=== PATIENT | female | born 1990 | race Caucasian/White ===

== ENCOUNTER 2018-12-31 12:49 | Observation (INO) | payer MEDICAID ==
[2018-12-31] MEDS ORDERED: Ketorolac 15 MG/ML SDV IVPUSH ONE (13:04)
[2018-12-31] MEDS ORDERED: HYDROmorphone 1 MG/ML Syringe IVPUSH ONE ×2 (13:04→15:21)
[2018-12-31] MEDS ORDERED: Ondansetron 4 MG/2 ML SDV IVPUSH ONE (13:04)
[2018-12-31 13:45] LABS: CHLORIDE,CL 105 mmol/L (54-184); SODIUM,NA 142 mmol/L (69-191)
[2018-12-31 13:48] LABS: ANION GAP 14.7 mmol/L (10-20)
--- NOTE | 2018-12-31 13:51 | EDM.PDOC ---
ED HPI GENERAL MEDICAL PROBLEM - General Chief Complaint: Abdominal Pain Stated Complaint: PAIN IN ABDOMINAL AREA RIGHT SIDE Time Seen by Provider: 12/31/18 12:55 Source of Information: Reports: Patient History Limitations: Reports: No Limitations - History of Present Illness INITIAL COMMENTS - FREE TEXT/NARRATIVE: Pt. presents to ER with complaints of RUQ abdominal pain. Pt. states that the discomfort has been intermittently happening for the past several weeks. She notices a postprandial pattern of symptoms of sharp pain shortly after eating fatty food. She states that she ate fajitas today shortly before onset of symptoms. Denies rick colored stool or dark urine. No fever or chills. She states that she is nauseated with the discomfort starts. She denies any fever or chills. States that the discomfort is located just below the R lower ribs. She states that the discomfort is worse with palpation but not worse with movement or deep breathing. Onset: Today Location: Reports: Abdomen Quality: Reports: Ache, Sharp, Stabbing Severity: Severe Associated Symptoms: Reports: Diaphoresis, Nausea/Vomiting Right Upper Abdomen Pain Score (Numeric/FACES): 8 - Related Data Allergies Allergy/AdvReac Type Severity Reaction Status Date / Time bupropion [From Wellbutrin] Allergy Other Verified 12/31/18 13:38 Home Meds: Home Meds Dextroamphetamine/Amphetamine [Adderall 20 mg Tablet] 20 mg PO DAILY 12/31/18 [ History] Escitalopram [Lexapro] 20 mg PO DAILY 12/31/18 [History] Past Medical History Psychiatric History: Reports: ADHD, Depression Social & Family History - Tobacco Use Smoking Status *Q: Current Every Day Smoker Years of Tobacco use: 10 Packs/Tins Daily: 0.2 ED ROS GENERAL - Review of Systems Review Of Systems: See Below Constitutional: Reports: No Symptoms HEENT: Reports: No Symptoms Respiratory: Reports: No Symptoms Cardiovascular: Reports: No Symptoms Endocrine: Reports: No Symptoms GI/Abdominal: Reports: Abdominal Pain, Nausea. Denies: Black Stool, Bloody Stool, Constipation, Diarrhea, Distension, Flatus, Hematemesis, Hematochezia, Melena, Mucous in Stool, Vomiting : Reports: No Symptoms Musculoskeletal: Reports: No Symptoms Skin: Reports: No Symptoms Neurological: Reports: No Symptoms Psychiatric: Reports: No Symptoms Hematologic/Lymphatic: Reports: No Symptoms Immunologic: Reports: No Symptoms ED EXAM, GENERAL - Physical Exam Exam: See Below Exam Limited By: No Limitations General Appearance: Alert, WD/WN, Moderate Distress Throat/Mouth: Normal Inspection, Normal Lips, Normal Teeth, Normal Gums, Normal Oropharynx, Normal Voice, No Airway Compromise Head: Atraumatic, Normocephalic Neck: Normal Inspection, Supple, Non-Tender, Full Range of Motion Respiratory/Chest: No Respiratory Distress, Lungs Clear, Normal Breath Sounds, No Accessory Muscle Use, Chest Non-Tender Cardiovascular: Normal Peripheral Pulses, Regular Rate, Rhythm, No Edema, No Gallop, No JVD, No Murmur, No Rub Peripheral Pulses: 4+: Radial (R) GI/Abdominal: Normal Bowel Sounds, Soft, No Organomegaly, No Distention, No Abnormal Bruit, No Mass, Pelvis Stable, Guarding, Tender (Female) Exam: Deferred Rectal (Female) Exam: Deferred Back Exam: Normal Inspection, Full Range of Motion Extremities: Normal Inspection, Normal Range of Motion, Non-Tender, No Pedal Edema, Normal Capillary Refill Neurological: Alert, Oriented, CN II-XII Intact, Normal Cognition, Normal Gait, Normal Reflexes, No Motor/Sensory Deficits Psychiatric: Normal Affect, Normal Mood Skin Exam: Warm, Dry, Intact, Normal Color, No Rash Course - Vital Signs Last Recorded V/S: Last Vital Signs Temp 36.8 C 12/31/18 12:55 Pulse 94 12/31/18 12:55 Resp 20 12/31/18 12:55 BP 139/88 12/31/18 12:55 Pulse Ox 98 12/31/18 12:55 - Orders/Labs/Meds Orders: Active Orders 24 hr Category Date Time Status Patient Status [ADT] Routine ADT 12/31/18 15:20 Ordered ETOH [ETHANOL BLOOD MEDICAL] [CHEM] Stat Lab 12/31/18 15:09 Ordered GGT [REF] Stat Lab 12/31/18 15:10 Ordered LACTATE DEHYDROGENASE,LDH [CHEM] Stat Lab 12/31/18 15:08 Ordered LIPID PANEL [CHEM] Stat Lab 12/31/18 15:08 Ordered Sodium Chloride 0.9% [Normal Saline] 1,000 ml Med 12/31/18 13:59 Ordered IV .BOLUS Sodium Chloride 0.9% [Saline Flush] Med 12/31/18 13:03 Active 10 ml FLUSH ASDIRECTED PRN Peripheral IV Insertion Adult [OM.PC] Routine Oth 12/31/18 13:04 Ordered Medication Orders Sodium Chloride (Normal Saline) 1,000 mls @ 500 mls/hr IV .BOLUS ONE Stop: 12/31/18 15:58 Last Admin: 12/31/18 14:59 Dose: 500 mls/hr Sodium Chloride (Saline Flush) 10 ml FLUSH ASDIRECTED PRN PRN Reason: Keep Vein Open Labs: Laboratory Tests 12/31/18 12/31/18 12/31/18 Range/Units 13:15 13:15 13:15 WBC 8.4 (4.0-10.0) x10^3/uL RBC 4.55 (4.00-5.50) x10^6/uL Hgb 13.7 (12.0-16.0) g/dL Hct 40.2 (33.0-47.0) % MCV 88.4 (78.0-93.0) fL MCH 30.1 (26.0-32.0) pg MCHC 34.1 (32.0-36.0) g/dL RDW Coeff of Mitra 13.6 (10.0-15.0) % Plt Count 254 (130-400) x10^3/uL Neut % (Auto) 72.6 (50.0-80.0) % Lymph % (Auto) 19.8 L (25.0-50.0) % [place] % (Auto) 6.6 (2.0-11.0) % Eos % (Auto) 0.6 (0.0-4.0) % Baso % (Auto) 0.4 (0.2-1.2) % PT 10.2 (10.0-12.8) SEC INR 0.9 L (2.0-3.5) Sodium 142 (69-191) mmol/L Potassium 3.7 (1.5-9.9) mmol/L Chloride 105 (54-184) mmol/L Carbon Dioxide 26 (21-32) mmol/L Anion Gap 14.7 (10-20) mmol/L BUN 14 (7-18) mg/dL Creatinine 0.9 (0.55-1.02) mg/dL Est Cr Clr Drug Dosing TNP Estimated GFR (MDRD) > 60 Glucose 97 (74-106) mg/dL Calcium 9.1 (8.5-10.1) mg/dL Corrected Calcium 9.34 (8.5-10.1) mg/dL Total Bilirubin 0.4 (0.2-1.0) mg/dL AST 14 L (15-37) U/L ALT 21 (14-59) U/L Alkaline Phosphatase 61 (46-116) U/L C-Reactive Protein < 0.2 (<=0.9) mg/dL Total Protein 6.9 (6.4-8.2) g/dL Albumin 3.7 (3.4-5.0) g/dL Globulin 3.2 Albumin/Globulin Ratio 1.16 Amylase 122 H (25-115) U/L Lipase 1100 H (73-393) U/L Meds: Medications Generic Name Dose Route Start Last Admin Trade Name Freq PRN Reason Stop Dose Admin Sodium Chloride 1,000 mls @ 500 mls/hr 12/31/18 13:59 12/31/18 14:59 Normal Saline IV 12/31/18 15:58 500 mls/hr .BOLUS ONE Administration Sodium Chloride 10 ml 12/31/18 13:03 Saline Flush FLUSH ASDIRECTED PRN Keep Vein Open Discontinued Medications Generic Name Dose Route Start Last Admin Trade Name Freq PRN Reason Stop Dose Admin Hydromorphone HCl 1 mg 12/31/18 13:04 12/31/18 13:26 Dilaudid IVPUSH 12/31/18 13:05 1 mg ONETIME ONE Administration Hydromorphone HCl 1 mg 12/31/18 15:21 Dilaudid IVPUSH 12/31/18 15:22 ONETIME ONE Iopamidol 100 ml 12/31/18 14:07 12/31/18 14:24 Isovue-300 (61%) IVPUSH 12/31/18 14:08 100 ml ONETIME ONE Administration Ketorolac Tromethamine 15 mg 12/31/18 13:04 12/31/18 13:25 Toradol IVPUSH 12/31/18 13:05 15 mg ONETIME ONE Administration Ondansetron HCl 4 mg 12/31/18 13:04 12/31/18 13:22 Zofran IVPUSH 12/31/18 13:05 4 mg ONETIME ONE Administration - Radiology Interpretation Free Text/Narrative:: CT abdomen and pelvis with contrast obtained. No obvious pancreatitis signs noted. Gallbladder is non-distended. No abscess or inflammatory changes noted. Departure - Departure Time of Disposition: 15:23 Disposition: Refer to Observation Clinical Impression: Pancreatitis - Discharge Information Referrals: Maegan Lawler MD [Primary Care Provider] - Forms: ED Department Discharge - Problem List Review Problem List Initiated/Reviewed/Updated: Yes - My Orders Last 24 Hours: My Active Orders 12/31/18 13:03 Sodium Chloride 0.9% [Saline Flush] 10 ml FLUSH ASDIRECTED PRN 12/31/18 13:04 Peripheral IV Insertion Adult [OM.PC] Routine 12/31/18 13:59 Sodium Chloride 0.9% [Normal Saline] 1,000 ml IV .BOLUS 12/31/18 15:08 LACTATE DEHYDROGENASE,LDH [CHEM] Stat LIPID PANEL [CHEM] Stat 12/31/18 15:09 ETOH [ETHANOL BLOOD MEDICAL] [CHEM] Stat 12/31/18 15:10 GGT [REF] Stat 12/31/18 15:20 Patient Status [ADT] Routine - Assessment/Plan Admission H&P: Please use this note as an admission H&P Last 24 Hours: My Active Orders 12/31/18 13:03 Sodium Chloride 0.9% [Saline Flush] 10 ml FLUSH ASDIRECTED PRN 12/31/18 13:04 Peripheral IV Insertion Adult [OM.PC] Routine 12/31/18 13:59 Sodium Chloride 0.9% [Normal Saline] 1,000 ml IV .BOLUS 12/31/18 15:08 LACTATE DEHYDROGENASE,LDH [CHEM] Stat LIPID PANEL [CHEM] Stat 12/31/18 15:09 ETOH [ETHANOL BLOOD MEDICAL] [CHEM] Stat 12/31/18 15:10 GGT [REF] Stat 12/31/18 15:20 Patient Status [ADT] Routine Plan: Pt. will be admitted observation. I spoke with Dr. Cortez who felt she could be admitted observation. Her labs are otherwise within normal limits, with the exception of elevated lipase and amylase. She has no white count and is afebrile. Her CRP is normal as well. Will not start any antibiotics at this time. There was no evidence of abscess or other inflammatory changes to the pancreas or gallbladder. Will order a gallbladder ultrasound on . LDH, lipids, ETOH, and GGT were ordered. Will discuss findings with surgery to discuss findings and plan for follow-up. She is a code 1.
[2018-12-31] MEDS ORDERED: Sodium Chloride 0.9% 1,000 ML IV ONE (13:59)
[2018-12-31] MEDS ORDERED: Iopamidol 612 MG/ML 100 ML Bottle IVPUSH ONE (14:07)
--- NOTE | 2018-12-31 15:06 | CT ---
[id number] CT/CT Abdomen Pelvis W IV EXAM: CT Abdomen Pelvis W IV CLINICAL DATA: RIGHT UPPER QUADRANT PAIN PANCREATITIS COMPARISON: NO PREVIOUS SIMILAR EXAM IS AVAILABLE. FINDINGS: There appears to be a tiny cyst in the left lobe of the liver The pancreas shows no obvious abnormality currently The gallbladder is not distended The appendix is normal and retrocecal The endometrium is prominent likely physiologic A small amount of free fluid in the pelvis is also likely physiologic Hypodensities of the adnexal regions bilaterally likely are physiologic There are surgical changes in the pelvis for which clinical correlation would be helpful The liver and spleen, kidneys and adrenals, pancreas and aorta otherwise are unremarkable. IMPRESSION: NO EVIDENCE OF PANCREATITIS CURRENTLY Alberto Crowe MD 12/31/18 [id number] Thank you for allowing us to participate in the care of your patient.
[2018-12-31] MEDS: D5 1/2 NS w/ 20 mEq/L KCl 1,000 ML IV SCH (17:03)
[2018-12-31] MEDS: HYDROmorphone 1 MG/ML Syringe IVPUSH PRN ×3 (17:10→23:11)
[2018-12-31] MEDS ORDERED: FLU Vacc QS2019-20(6MOS+)/PF 60 MCG/0.5 ML SYRINGE IM ONE (17:45)
[2018-12-31] MEDS: Sodium Chloride 0.9% 10 ML Syringe FLUSH PRN (19:52)
[2019-01-01] MEDS: Sodium Chloride 0.9% 10 ML Syringe FLUSH PRN (02:43)
[2019-01-01] MEDS: D5 1/2 NS w/ 20 mEq/L KCl 1,000 ML IV SCH ×2 (02:45→12:46)
[2019-01-01] MEDS: HYDROmorphone 1 MG/ML Syringe IVPUSH PRN ×4 (02:48→12:45)
[2019-01-01 06:55] LABS: CHLORIDE,CL 107 mmol/L (54-184); SODIUM,NA 142 mmol/L (69-191)
[2019-01-01 06:56] LABS: ANION GAP 12.9 mmol/L (10-20)
[2019-01-01] MEDS ORDERED: AMPHETAMINE PO SCH (08:00)
[2019-01-01] MEDS ORDERED: Citalopram 20 MG Tab PO SCH (08:00)
--- NOTE | 2019-01-01 14:21 | PCM.DCSUM1 ---
Discharge Summary - Hospital Course Free Text/Narrative:: Pt admitted last night with acute abd pain RUQ, lipase at 1100 today in the 100' s. CT negative for pancreatitis, gallbladder is not distended. PAin has improved , pt able to eat w/o complications. Diagnosis: Stroke: No - Discharge Data Discharge Date: 01/01/19 Discharge Disposition: Home, Self-Care 01 Condition: Good - Referral to Home Health Primary Care Physician: Maegan Lawler MD - Patient Instructions Diet: Regular Diet as Tolerated - Discharge Plan *PRESCRIPTION DRUG MONITORING PROGRAM REVIEWED*: Not Applicable *COPY OF PRESCRIPTION DRUG MONITORING REPORT IN PATIENT GRACIE: Not Applicable Home Medications: Home Meds Dextroamphetamine/Amphetamine [Adderall 20 mg Tablet] 20 mg PO DAILY 12/31/18 [ History] Escitalopram [Lexapro] 20 mg PO DAILY 12/31/18 [History] Forms: ED Department Discharge Referrals: Maegan Lawler MD [Primary Care Provider] - - Discharge Summary/Plan Comment DC Time >30 min.: Yes - Patient Data Vitals - Most Recent: Last Vital Signs Temp 36.8 C 01/01/19 09:44 Pulse 74 01/01/19 09:44 Resp 14 01/01/19 09:44 BP 110/62 01/01/19 09:44 Pulse Ox 99 01/01/19 09:44 Weight - Most Recent: 61.689 kg I&O - Last 24 hours: Intake & Output 12/31/18 01/01/19 01/01/19 22:59 06:59 14:59 Intake Total 120 Output Total 400 1000 Balance -400 -1000 120 Lab Results - Last 24 hrs: Laboratory Results - last 24 hr 12/31/18 12/31/18 01/01/19 Range/Units 13:15 13:15 06:25 WBC 5.1 (4.0-10.0) x10^3/uL RBC 4.45 (4.00-5.50) x10^6/uL Hgb 13.5 (12.0-16.0) g/dL Hct 40.5 (33.0-47.0) % MCV 91.0 (78.0-93.0) fL MCH 30.3 (26.0-32.0) pg MCHC 33.3 (32.0-36.0) g/dL RDW Coeff of Mitra 14.0 (10.0-15.0) % Plt Count 225 (130-400) x10^3/uL Neut % (Auto) 63.2 (50.0-80.0) % Lymph % (Auto) 27.4 (25.0-50.0) % [place] % (Auto) 7.6 (2.0-11.0) % Eos % (Auto) 1.4 (0.0-4.0) % Baso % (Auto) 0.4 (0.2-1.2) % Sodium (69-191) mmol/L Potassium (1.5-9.9) mmol/L Chloride (54-184) mmol/L Carbon Dioxide (21-32) mmol/L Anion Gap (10-20) mmol/L BUN (7-18) mg/dL Creatinine (0.55-1.02) mg/dL Est Cr Clr Drug Dosing mL/min Estimated GFR (MDRD) Glucose (74-106) mg/dL Calcium (8.5-10.1) mg/dL Corrected Calcium (8.5-10.1) mg/dL Total Bilirubin (0.2-1.0) mg/dL GGT 11 (9-64) U/L AST (15-37) U/L ALT (14-59) U/L Alkaline Phosphatase (46-116) U/L Lactate Dehydrogenase 191 (81-234) U/L Total Protein (6.4-8.2) g/dL Albumin (3.4-5.0) g/dL Globulin Albumin/Globulin Ratio Triglycerides 132 (0-149) mg/dL Cholesterol 150 (0-199) mg/dL LDL Cholesterol, Calc 52 (0-130) mg/dL HDL Cholesterol 72 H (40-59) mg/dL Amylase (25-115) U/L Lipase (73-393) U/L Ethyl Alcohol < 3 (0-3) mg/dL 01/01/19 Range/Units 06:25 WBC (4.0-10.0) x10^3/uL RBC (4.00-5.50) x10^6/uL Hgb (12.0-16.0) g/dL Hct (33.0-47.0) % MCV (78.0-93.0) fL MCH (26.0-32.0) pg MCHC (32.0-36.0) g/dL RDW Coeff of Mitra (10.0-15.0) % Plt Count (130-400) x10^3/uL Neut % (Auto) (50.0-80.0) % Lymph % (Auto) (25.0-50.0) % [place] % (Auto) (2.0-11.0) % Eos % (Auto) (0.0-4.0) % Baso % (Auto) (0.2-1.2) % Sodium 142 (69-191) mmol/L Potassium 3.9 (1.5-9.9) mmol/L Chloride 107 (54-184) mmol/L Carbon Dioxide 26 (21-32) mmol/L Anion Gap 12.9 (10-20) mmol/L BUN 8 (7-18) mg/dL Creatinine 0.8 (0.55-1.02) mg/dL Est Cr Clr Drug Dosing 91.21 mL/min Estimated GFR (MDRD) > 60 Glucose 94 (74-106) mg/dL Calcium 8.2 L (8.5-10.1) mg/dL Corrected Calcium 8.76 (8.5-10.1) mg/dL Total Bilirubin 0.6 (0.2-1.0) mg/dL GGT (9-64) U/L AST 15 (15-37) U/L ALT 18 (14-59) U/L Alkaline Phosphatase 56 (46-116) U/L Lactate Dehydrogenase (81-234) U/L Total Protein 6.3 L (6.4-8.2) g/dL Albumin 3.3 L (3.4-5.0) g/dL Globulin 3.0 Albumin/Globulin Ratio 1.10 Triglycerides (0-149) mg/dL Cholesterol (0-199) mg/dL LDL Cholesterol, Calc (0-130) mg/dL HDL Cholesterol (40-59) mg/dL Amylase 47 (25-115) U/L Lipase 132 (73-393) U/L Ethyl Alcohol (0-3) mg/dL Med Orders - Current: Current Medications Citalopram Hydrobromide (Celexa) 40 mg PO DAILY BRADLY Last Admin: 01/01/19 07:28 Dose: 40 mg Hydromorphone HCl (Dilaudid) 1 mg IVPUSH Q3H PRN PRN Reason: Pain Last Admin: 01/01/19 12:45 Dose: 1 mg Potassium Chloride/Dextrose/Sod Cl (D5 1/2 Ns W/ 20 Meq/L Kcl) 1,000 mls @ 100 mls/hr IV ASDIRECTED BRADLY Last Admin: 01/01/19 12:46 Dose: 100 mls/hr Amphetamine Er Salts ([Adderall]) 0 mg PO DAILY [facility] Last Admin: 01/01/19 08:30 Dose: 20 mg Sodium Chloride (Saline Flush) 10 ml FLUSH ASDIRECTED PRN PRN Reason: Keep Vein Open Last Admin: 01/01/19 02:43 Dose: 10 ml Discontinued Medications Hydromorphone HCl (Dilaudid) 1 mg IVPUSH ONETIME ONE Stop: 12/31/18 13:05 Last Admin: 12/31/18 13:26 Dose: 1 mg Hydromorphone HCl (Dilaudid) 1 mg IVPUSH ONETIME ONE Stop: 12/31/18 15:22 Last Admin: 12/31/18 15:29 Dose: 1 mg Sodium Chloride (Normal Saline) 1,000 mls @ 500 mls/hr IV .BOLUS ONE Stop: 12/31/18 15:58 Last Admin: 12/31/18 14:59 Dose: 500 mls/hr Influenza Virus Vaccine (Pharmacy To Dose - Influenza Vaccine) 1 each IM ONETIME ONE Stop: 12/31/18 16:49 Influenza Virus Vaccine (Fluzone Quad [id number] Syringe) 60 mcg IM .ONCE ONE Stop: 12/31/18 17:46 Last Admin: 12/31/18 17:47 Dose: 60 mcg Iopamidol (Isovue-300 (61%)) 100 ml IVPUSH ONETIME ONE Stop: 12/31/18 14:08 Last Admin: 12/31/18 14:24 Dose: 100 ml Ketorolac Tromethamine (Toradol) 15 mg IVPUSH ONETIME ONE Stop: 12/31/18 13:05 Last Admin: 12/31/18 13:25 Dose: 15 mg Ondansetron HCl (Zofran) 4 mg IVPUSH ONETIME ONE Stop: 12/31/18 13:05 Last Admin: 12/31/18 13:22 Dose: 4 mg
[2019-01-01 14:29] VITALS: BP 125/70; PULSE 88
== END 2019-01-01 14:57 | disposition home or self-care (01) ==
LOC: VM.ED 12:49 → VM.MS 15:37
PROVIDERS: ADMIT Physician Assistant; ATTEND Physician Assistant
DX: R10.11 Right upper quadrant pain (principal); R74.8 Abnormal levels of other serum enzymes; F90.9 Attention-deficit hyperactivity disorder, unspecified type; F32.9 Major depressive disorder, single episode, unspecified; F17.210 Nicotine dependence, cigarettes, uncomplicated; Z88.8 Allergy status to other drugs, medicaments and biological substances
CPT/HCPCS: 36415; 74177; 80053; 80061; 82150; 82977; 83615; 83690; 85025; 85610; 86140; 90686; 96361; 96374; 96375; 96376; 99220; 99285-25; A9270-GY; G0008; G0378; G0480; J1170; J1885; J2405; J3480; J7030; Q9967

== ENCOUNTER 2019-04-10 10:04 | Emergency (ER) | payer MEDICAID ==
--- NOTE | 2019-04-10 10:48 | CR ---
[id number] RAD/RAD Knee Left 3V EXAM: RAD Knee Left 3V CLINICAL DATA: LEFT KNEE PAIN COMPARISON: NO PREVIOUS SIMILAR EXAM IS AVAILABLE. FINDINGS: No fracture or dislocation is seen. There is no radiopaque foreign body in the soft tissues. There is no air in the soft tissues. There is no cortical thickening or periosteal reaction either. IMPRESSION: NEGATIVE PLAIN FILM EXAM. Alberto Crowe MD 04/10/19 1047 Thank you for allowing us to participate in the care of your patient.
--- NOTE | 2019-04-11 01:16 | EDM.PDOC ---
ED HPI GENERAL MEDICAL PROBLEM - General Chief Complaint: Lower Extremity Injury/Pain Stated Complaint: LEFT KNEE INJURY Time Seen by Provider: 04/10/19 10:04 Source of Information: Reports: Patient History Limitations: Reports: No Limitations - History of Present Illness INITIAL COMMENTS - FREE TEXT/NARRATIVE: Pt. presents to ER with complaints of L knee pain. She states that she thinks she sprained it approx. 1 week ago. She was seen in the clinic and patient was urged to follow-up if not improving. She states that she can't get in to see Dr. Lawler for over a week. No imaging has been performed. Pt. denies any numbness/tingling in the extremity. Denies any injury elsewhere. She states that the discomfort is located in the lateral and posterior aspect of the L knee. 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 No deformity. No crepitus. Drawer and Lachmann's tests are negative. Increased pain with varus and valgus manipulation of the joint.). No: Increased Warmth, Redness Course - Vital Signs Last Recorded V/S: Last Vital Signs Temp 36.0 C 04/10/19 10:08 Pulse 89 04/10/19 10:08 Resp 18 04/10/19 10:08 BP 149/75 H 04/10/19 10:08 Pulse Ox 100 04/10/19 10:08 - Radiology Interpretation Free Text/Narrative:: radiographs of L knee negative for acute pathology. Departure - Departure Time of Disposition: 11:03 Disposition: Home, Self-Care 01 Clinical Impression: Left knee sprain - Discharge Information Instructions: [facility] for Routine Care of Injuries, [id number], Knee Sprain, Adult, [id number] Referrals: Maegan Lawler MD [Primary Care Provider] - Forms: ED Department Discharge Additional Instructions: Physical therapy appointment for at 10 AM at [facility] [place] physical therapy. Ice knee for 10-15 min every hour. Naproxen 500mg twice daily Follow-up in clinic in 10-14 days, sooner if not improving. Sepsis Event Note - Evaluation Sepsis Screening Result: No Definite Risk - Assessment/Plan Plan: Physical therapy appointment for at 10 AM at [facility] [place] physical therapy. Ice knee for 10-15 min every hour. Naproxen 500mg twice daily Follow-up in clinic in 10-14 days, sooner if not improving.
== END 2019-04-10 11:03 | disposition home or self-care (01) ==
LOC: VM.ED 10:04
DX: S83.92XA Sprain of unspecified site of left knee, initial encounter (principal); F32.9 Major depressive disorder, single episode, unspecified; F17.210 Nicotine dependence, cigarettes, uncomplicated; Z88.8 Allergy status to other drugs, medicaments and biological substances; X50.9XXA Other and unspecified overexertion or strenuous movements or postures, initial encounter
CPT/HCPCS: 73562-LT; 99283-25

== ENCOUNTER 2019-07-13 15:34 | Emergency (ER) | payer MEDICAID ==
--- NOTE | 2019-07-13 15:58 | EDM.PDOC ---
ED HPI GENERAL MEDICAL PROBLEM - General Chief Complaint: Laceration Stated Complaint: laceration to finger Time Seen by Provider: 07/13/19 15:56 Source of Information: Reports: Patient History Limitations: Reports: No Limitations - History of Present Illness INITIAL COMMENTS - FREE TEXT/NARRATIVE: Patient comes emergency department today with complaints of a laceration to her left index finger that happened just prior to arrival when she was cutting potatoes and accidentally cut her finger. She was unable to get the bleeding under control so she came to the emergency department. Her last tetanus shot was about 5 years ago. She denies any other paresthesia to her left hand or any other injury. 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 ED EXAM, SKIN/RASH Exam: See Below Exam Limited By: No Limitations General Appearance: Alert, WD/WN, No Apparent Distress Respiratory/Chest: No Respiratory Distress Cardiovascular: Normal Peripheral Pulses Extremities: No: Normal Inspection (On the lateral aspect of the left index finger on the distal phalange is a C-shaped approximately 1 cm fillet type laceration. There is no active bleeding. This does not involve the nail or cuticle. It is on the lateral aspect of the finger. She is able to flex and extend at the DIP PIP and MCP joints appropriately. Capillary refill is appropriate. No other signs of trauma to the left hand.) Neurological: Alert, Oriented, Normal Cognition, No Motor/Sensory Deficits Skin: Warm, Dry, Intact, Normal Color ED SKIN PROCEDURES - Laceration/Wound Repair Left Digit - 2nd (Index) Appearance: Superficial Distal NVT: Neuro & Vascular Intact Skin Prep: Chlorhexidine (Hibiciens) Closed with: Dermabond Lac/Wound length In cm: 1 Tetanus Status Addressed: Yes Complications: No Course - Vital Signs Last Recorded V/S: Last Vital Signs Temp 36.8 C 07/13/19 15:42 Pulse 95 07/13/19 15:42 Resp 18 07/13/19 15:42 BP 140/85 07/13/19 15:42 Pulse Ox 99 07/13/19 15:42 Departure - Departure Time of Disposition: 15:56 Disposition: Home, Self-Care 01 Clinical Impression: Finger laceration Qualifiers: Encounter type: initial encounter Finger: index finger Damage to nail status: without damage Foreign body presence: without foreign body Laterality: left Qualified Code(s): S61.211A - Laceration without foreign body of left index finger without damage to nail, initial encounter - Discharge Information *PRESCRIPTION DRUG MONITORING PROGRAM REVIEWED*: Not Applicable *COPY OF PRESCRIPTION DRUG MONITORING REPORT IN PATIENT GRACIE: Not Applicable Instructions: Laceration Care, Adult, [id number], Sutures, Edin, or Adhesive Wound Closure, [id number] Referrals: Maegan Lawler MD [Primary Care Provider] - Forms: ED Department Discharge Additional Instructions: Keep the finger dry. Do not pull off the glue. Just slowly clip if starts to peal. Watch for signs of infection. Return to the ED if new or worsening. Sepsis Event Note - Evaluation Sepsis Screening Result: No Definite Risk - Focused Exam Vital Signs: Vital Signs Temp Pulse Resp BP Pulse Ox 07/13/19 15:42 36.8 C 95 18 140/85 99 Date Exam was Performed: 07/13/19 Time Exam was Performed: 16:51 - Assessment/Plan Assessment:: Finger laceration fillet type glued. Plan: Keep the finger dry. Do not pull off the glue. Just slowly clip if starts to peal. Watch for signs of infection. Return to the ED if new or worsening.
== END 2019-07-13 16:01 | disposition home or self-care (01) ==
LOC: VM.ED 15:34
DX: S61.211A Laceration without foreign body of left index finger without damage to nail, initial encounter (principal); F32.9 Major depressive disorder, single episode, unspecified; F90.9 Attention-deficit hyperactivity disorder, unspecified type; F17.210 Nicotine dependence, cigarettes, uncomplicated; Z88.8 Allergy status to other drugs, medicaments and biological substances; Z79.899 Other long term (current) drug therapy; W26.8XXA Contact with other sharp object(s), not elsewhere classified, initial encounter
CPT/HCPCS: 12001; 99282